=== PATIENT | male | born 1950 | race Caucasian/White ===

== ENCOUNTER 2023-01-26 18:57 | Inpatient (IN) | payer MEDICARE, OTHER ==
[~2023-01-26] VITALS: Ht 165.1 cm; Wt 90.7 kg
[2023-01-26 19:12] VITALS: TEMP 98.2
[2023-01-26 19:53] LABS: BASOPHILS # (AUTO) 0.1 K/uL (0.0-0.2); BASOPHILS % (AUTO) 0.7 % (0.0-2.0); EOSINOPHILS # (AUTO) 0.1 K/uL (0.0-0.7); EOSINOPHILS % (AUTO) 1.5 % (0.0-6.0); HEMATOCRIT 44 % (39-51); HEMOGLOBIN 14.8 g/dL (13.5-17.5); LYMPHOCYTES # (AUTO) 3.4 K/uL (0.8-4.8); LYMPHOCYTES % (AUTO) 36.2 % (20.0-44.0); MEAN CORPUSCULAR HEMOGLOBIN 29 PG (26.0-33.0); MEAN CORPUSCULAR HGB CONC 34 g/dl (31.0-36.0); MEAN CORPUSCULAR VOLUME 88 fL (80-96); MONOCYTES # (AUTO) 0.9 K/uL (0.1-1.30); MONOCYTES % (AUTO) 9.4 % (2.0-12.0); NEUTROPHILS # (AUTO) 4.8 K/uL (1.8-8.9); NEUTROPHILS % (AUTO) 52.2 % (43.0-81.0); PLATELET COUNT (AUTO) 190 K/uL (150-450); RED BLOOD CELL COUNT(AUTO) 5.03 MIL/uL (4.5-6.0); RED CELL DISTRIBUTION WIDTH 14.8 % (11.5-15.0); WHITE BLOOD COUNT (AUTO) 9.3 K/uL (4.3-11.0)
[2023-01-26] MEDS ORDERED: IV NS 0.9% 1,000 ML IV ONE (20:00)
[2023-01-26] MEDS ORDERED: DILTIAZEM HCL 25 MG IV IV ONE (20:00)
[2023-01-26] MEDS ORDERED: ASPIRIN 81 MG TAB.CHEW PO ONE (20:00)
[2023-01-26 20:01] LABS: CALCIUM, SERUM 9.2 mg/dL (8.5-10.1); CARBON DIOXIDE 26 mmol/L (21-32); CHLORIDE 105 mmol/L (98-107); CREATININE 0.6 mg/dL (0.6-1.3); GLUCOSE 149 mg/dL (74-106); SODIUM SERUM 139 mmol/L (136-145); UREA NITROGEN, BLOOD 20 mg/dL (7-18)
[2023-01-26 20:15] LABS: THYROID STIMULATING HORMONE 0.561 uIU/mL (0.358-3.74)
[2023-01-26] MEDS ORDERED: DILTIAZEM HCL 25 MG IV ONE (20:21)
[2023-01-26] MEDS ORDERED: ASPIRIN 81 MG TAB.CHEW ONE (20:22)
[2023-01-26 21:26] VITALS: BP 105/72; O2SAT 95
[2023-01-26] MEDS ORDERED: ONDANSETRON HCL/PF 4 MG/2 ML VIAL IVP PRN (23:00)
[2023-01-26] MEDS ORDERED: MAG HYDROX/AL HYDROX/SIMETH 30 ML UDC PO PRN (23:00)
[2023-01-26] MEDS ORDERED: ZOLPIDEM TARTRATE 5 MG TABLET PO PRN (23:00)
[2023-01-26] MEDS ORDERED: MAGNESIUM HYDROXIDE 30 ML UDC PO PRN (23:00)
[2023-01-26] MEDS ORDERED: Z GUARD REMEDY 4 OZ OINT TP PRN (23:00)
[2023-01-26] MEDS ORDERED: ENOXAPARIN SODIUM 40 MG/0.4 ML DISP.SYRIN SQ SCH (23:00)
[2023-01-26] MEDS ORDERED: ACETAMINOPHEN 325 MG TABLET PO PRN (23:00)
[2023-01-27] MEDS ORDERED: DILTIAZEM HCL 30 MG TABLET PO SCH
[2023-01-27] MEDS ORDERED: PANTOPRAZOLE 40 MG TABLET.DR PO SCH (07:30)
[2023-01-27] MEDS ORDERED: ASPIRIN 81 MG TAB.CHEW PO SCH (09:00)
== END 2023-01-26 22:55 | disposition left against medical advice (07) | DRG 198 ==
LOC: ER 19:26 → TELE 21:51
PROVIDERS: ADMIT Student in an Organized Health Care Education/Training Program; ATTEND Student in an Organized Health Care Education/Training Program
DX: R07.9 Chest pain, unspecified (principal); I25.10 Atherosclerotic heart disease of native coronary artery without angina pectoris; E11.9 Type 2 diabetes mellitus without complications; E78.5 Hyperlipidemia, unspecified; R00.2 Palpitations
CPT/HCPCS: 36415; 71045-TC; 80048-TC; 83735-TC; 84443-TC; 84484-TC; 85025-TC; G0378; J3490; J7030